=== PATIENT | female | born 1955 | race Caucasian/White ===

== ENCOUNTER 2022-05-20 17:42 | Emergency (ER) | payer OTHER ==
--- OUTSIDE RECORDS SUMMARY | 2022-05-20 17:48 | XMS REPORT | Continuity of Care Document ---
:1955 Author Organization [facility] t Address [address] [place] [address] Care Team Providers Name Role Phone TISH SAUCEDA Primary Care Physician Unavailable RAJIV GILMORE Attending Clinician Unavailable Manuel Bustos MD Attending Clinician ERIC CHAPA Attending Clinician Unavailable ERIC CHAPA Admitting Clinician Unavailable Payers Payer Name Policy Type Policy Number Effective Date Expiration Date Brice felipe [facility] DUAL [id number] 2022 COMP HMO D SNP 00:00:00 [place] [id number] 2022 00:00:00 Problems Condition Condition Condition Status Onset Resolution Last Treating Co mments Source Name Details Category Date Date Treatment Clinician Date Palpitatio Palpitatio Disease Active U nivers ns ns 6-27 ity of 00:: 00 Medical Branch Dyslipidem Dyslipidem Disease Active U nivers ia ia 6-26 ity of 00:00: [place] 00 Medical Branch Atypical Atypical Disease Active Unive rs chest pain chest pain 6-25 it y of 00:00: Medical Branch First First Disease Active Univers degree AV degree AV 6-25 ity of block block 00:00: [place] 00 Medical Branch Allergies, Adverse Reactions, Alerts Allergy Allergy Status Severity Reaction(s) Onset Inactive Treating Comm ents Source Name Type Date Date Clinician Sulfa Propensi Active Other - See Uni vers (Sulfona ty to comments 7-27 ity of mide adverse 00:00: [place] Antibiot reaction 00 Medica l ics) s Branch SULFA Drug Active Other-Cmnt Univer s (SULFONA Class 7-27 ity of MIDE 00:00: [place] ANTIBIOT 00 Medical ICS) Branch Hydrocod Propensi Active Shortness of 2021-0 Univers one ty to Breath 6-25 ity of adverse 00:00: [place] reaction Medical s Branch HYDROCOD DRUG Active SOB Univers ONE INGREDI 6-25 ity of 00:00: [place] 00 Medical Branch CODEINE DRUG Active Rash 2021-0 Univers INGREDI 4-08 ity of 00:00: [place] 00 Medical Branch Codeine Propensi Active Rash Univers ty to 4-08 ity of adverse 00:00: [place] reaction Medical s Branch Social History Social Habit Start Date Stop Date Quantity Comments Source History SDOH University o f Alcohol Std [place] Medical Drinks Branch History SDLA University o f Alcohol Binge [place] Medic al Branch History [facility] University o f Alcohol Comment [place] Med ical Branch Exposure to 2022-03-19 2022-03-29 Not sure University of SARS-CoV-2 00:00:00 13:48:00 [place] Medical (event) Branch Alcohol intake 2022-03-29 2022-03-29 Lifetime University of 00:00:00 00:00:00 non-drinker [place] Medical (finding) Branch Education 2022-02-25 2022-02-25 21 University of 00:00:00 00:00:00 [facility] [place] [facility] Tobacco use and 2021-12-09 2021-12-09 Smokeless tobacco Un iversity of exposure 00:00:00 00:00:00 non-user [place] Medical Branch History SDOH 2021-12-09 2021-12-09 1 University o f Alcohol Frequency 00:00:00 00:00:00 [place] M edical Branch History of 2016-11-01 Cigarette Smoker Universi ty of tobacco use 00:00:00 [facility] [place] [facility] Sex [birth year] Universit y of 00:00:00 00:00:00 [facility] [place] [facility] Smoking Status Start Date Stop Date Source Ex-smoker 2021-12-09 00:00:00 2021-12-09 00:00:00 Universi ty of [facility] [place] [facility] Medications Ordered Filled Start Stop Current Ordering Indication Dosage Frequency Signature Comments Components Source Medication Medication Date Date Medication? Clinician (SIG) Name Name nitroglycer Yes [id number] .4mg Place 1 Univers in 0.4 mg 7-27 tablet ity of sublingual 00:00: [place] tablet 00 tongue Medical every 5 Branch (five) minutes as needed for Chest pain. nitroglycer Yes [id number] .4mg Place 1 Univers in 0.4 mg 7-27 tablet ity of sublingual 00:00: [place] tablet 00 tongue Medical every 5 Branch (five) minutes as needed for Chest pain. ALPRAZolam Yes [id number] 2mg Take 1 U nivers 2 mg tablet 7-12 tablet by ity of 00:00: mouth in [place] 00 the Medical morning. Branch FLUoxetine Yes [id number] 10mg Take 1 U nivers 10 mg 7-12 capsule by ity of capsule 00:00: mouth in [place] the Medical morning. Branch ALPRAZolam Yes [id number] 2mg Take 1 U nivers 2 mg tablet 7-12 tablet by ity of 00:00: mouth in [place] the Medical morning. Branch FLUoxetine Yes [id number] 10mg Take 1 U nivers 10 mg 7-12 capsule by ity of capsule 00:00: mouth in [place] the Medical morning. Branch aspirin 81 2021- Yes [id number] 81mg Take 1 Univers mg chewable 6-27 07-28 tablet by it y of tablet 00:00: 04:59 mouth [place] 00 :00 daily for Medical 30 days. Branch aspirin 81 2021- Yes [id number] 81mg Take 1 Univers mg chewable 6-27 07-28 tablet by it y of tablet 00:00: 04:59 mouth [place] 00 :00 daily for Medical 30 days. Branch niacin 250 Yes [id number] 250mg Take 1 Univers mg tablet 6-26 tablet by ity o f 00:00: mouth at [place] [address] bedtime. Medical Branch niacin 250 Yes [id number] 250mg Take 1 Univers mg tablet 6-26 tablet by ity o f 00:00: mouth at [place] [address] bedtime. Medical Branch tiZANidine Yes [id number] TAKE 1 U nivers 2 mg tablet 4-08 TABLET BY ity of 00:00: MOUTH [place] 00 EVERY 8 Medical HOURS Branch NEEDED FOR SPASMS proMETHazin Yes [id number] TAKE 1 Univers e 12.5 mg 4-08 TABLET BY ity o f tablet 00:00: MOUTH [place] 00 EVERY 6 Medical HOURS Branch NEEDED tiZANidine Yes [id number] TAKE 1 U nivers 2 mg tablet 4-08 TABLET BY ity of 00:00: MOUTH [place] 00 EVERY 8 Medical HOURS Branch NEEDED FOR SPASMS proMETHazin Yes [id number] TAKE 1 Univers e 12.5 mg 4-08 TABLET BY ity o f tablet 00:00: MOUTH [place] 00 EVERY 6 Medical HOURS Branch NEEDED hydrOXYzine Yes TAKE ONE Un jodi 50 mg 2-14 CAPSULE BY ity of capsule 00:00: MOUTH [place] 00 TWICE Medical DAILY Branch NEEDED FOR ITCHING hydrOXYzine Yes TAKE ONE Un jodi 50 mg 2-14 CAPSULE BY ity of capsule 00:00: MOUTH [place] 00 TWICE Medical DAILY Branch NEEDED FOR ITCHING Vital Signs Vital Name Observation Time Observation Value Comments Source Systolic blood 2022-03-29 18:52:00 122 [facility]Hg[facility] 2022-03-29 18:52:00 71 [facility]Hg[facility] 2022-03-29 18:52:00 71 /min [facility] Body temperature 2022-03-29 18:52:[address] [facility] Body height 2022-03-29 18:52:00 165.1 cm [facility] Body weight 2022-03-29 18:52:00 63.504 kg [facility] BMI 2022-03-29 18:52:00 23.30 kg/m2 [facility] Oxygen saturation in 2022-03-29 18:52:00 98 /min [facility] Arterial blood by [facility] Pulse oximetry Branch Procedures This patient has no known procedures. Encounters Start End Encounter Admission Attending Care Care Encounter Source Date/Time Date/Time Type Type Clinicians Facility Department ID 2022-05-23 2022-05-[address] [facility] [id number] Univers 00:00:00 00:00:00 RAJIV moody [facility] 2022-03-29 2022-03-29 Office Akash [facility] [id number] Univers 13:20:00 13:40:00 Visit Manuel KEEBRIANNA [id number] heidy [facility] [id number] Ema fall PROFESSIO [id number] Mo dical NAL 059 [facility] 2022-02-25 2022-02-27 Outpatient X SAMMI [facility] [id number] Univers 00:18:00 13:00:00 ERIC moody [facility] Results This patient has no known results.
--- NOTE | 2022-05-20 18:45 | RAD REPORT ---
EXAM DESCRIPTION: [place] Single View05/20/2022 6:36 pm CLINICAL HISTORY: Chest pain COMPARISON: none FINDINGS: The lungs appear clear of acute infiltrate. The heart is normal size IMPRESSION: No acute abnormalities displayed
[2022-05-20] MEDS ORDERED: ASPIRIN 81 MG CHEWABLE TABLET ONE (18:46)
[2022-05-20 19:16] LABS: Protime INR 1.04
[2022-05-20 19:28] LABS: Absolute Lymphocytes (CBC) 1.9 K/uL (0.7-4.9); Albumin 4.3 g/dL (3.4-5.0); Bilirubin Direct 0.1 mg/dL (0-0.2); Bilirubin Total 0.4 mg/dL (0.2-1.0); Lymphocytes % 34.5 % (15.3-44.8); MCV 92.4 fL (80-100); MPV 8.1 fL (7.6-11.3); Magnesium 2.1 mg/dL (1.8-2.4); Potassium 3.5 mmol/L (3.5-5.1); Protein, Total 7.7 g/dL (6.4-8.2); RBC Red Blood Cell Count 4.33 M/uL (3.86-4.86); Troponin High Sensitivity 4.7 pg/mL (<58.9)
--- NOTE | 2022-05-20 23:05 | ER ---
Nurse's Notes [facility] Name: Brittany Ching Age: 66 yrs Sex: Female : 1955 Arrival Date: 05/20/2022 Time: 17:47 Bed 25 Private MD: Diagnosis: Chest pain, unspecified Presentation: 05/20 17:47 Chief complaint: Sudden onset left sided chest pain and SOB that started approx 30 mins hb ago. Coronavirus screen: At this time, the client does not indicate any symptoms associated with coronavirus-19. Ebola Screen: No symptoms or risks identified at this time. Risk Assessment: Do you want to hurt yourself or someone else? Patient reports no desire to harm self or others. Onset of symptoms was May 20, 2022. 17:47 Method Of Arrival: Ambulatory 17:47 Acuity: WAYNE 3 05/21 00:00 Initial Sepsis Screen: Does the patient meet any 2 criteria? No. Patient's initial kb3 sepsis screen is negative. Does the patient have a suspected source of infection? No. Patient's initial sepsis screen is negative. Historical: - Allergies: 05/20 17:48 Sulfa (Sulfonamide Antibiotics); hb 17:48 Codeine; hb - Home Meds: 17:48 Prozac Oral [Active]; tizanidine oral [Active]; Xanax Oral [Active]; hb - PMHx: 17:48 Bipolar disorder; Anxiety; hb - Immunization history:: Adult Immunizations up to date, Client reports receiving the 1st dose of the Covid vaccine, Last tetanus immunization: unknown. - Social history:: Smoking status: Patient denies any tobacco usage or history of. Screenin:00 Abuse screen: Denies threats or abuse. Denies injuries from another. Nutritional kb3 screening: No deficits noted. Tuberculosis screening: No symptoms or risk factors identified. Fall Risk None identified. Assessment: 18:00 General: Appears in no apparent distress. Behavior is calm, cooperative, Received care kb3 of pt from triage. Pt is AAO x4. Reports sudden onset of left-sided chest pain that began this afternoon after she had a verbal altercation with her roommate and was kicked out of her living situation. Pt reports "I am now homeless and I don't know what to do." PT denies N/V/sweating with CP. States the pain has subsided at this time and is preoccupied with plugging in her cell phone and getting a drink of water. No distress noted. 18:00 Pain: Denies pain. Cardiovascular: Reports chest pain, Reports the left-sided chest kb3 pain comes and goes and she is not experiencing CP at this time Heart tones present Capillary refill < 3 seconds Patient's skin is warm and dry. Pulses are 2+ in right radial artery and left radial artery. Respiratory: Breath sounds are clear bilaterally. 18:00 Pain: Pain does not radiate. Pt reports chest pain comes and goes and has resolved at kb3 this time Pain began 1 day ago. 20:45 General: Pt ambulatory to restroom without distress. kb3 22:23 General: [place] and drink provided. PT resting comfortably. kb3 23:38 General: Pt ambulatory to restroom without difficulty. kb3 Vital Signs: 17:47 BP 124 / 90; Pulse 88; Resp 16; Temp 98.2(O); Pulse Ox 100% on R/A; Weight 62.14 kg; hb Height 5 ft. 5 in. (165.10 cm); Pain 7/10; 18:00 BP 107 / 71; Pulse 75; Resp 20; Pulse Ox 98% ; kb3 19:00 BP 103 / 67; Pulse 73; Resp 18; Pulse Ox 97% ; kb3 20:00 BP 132 / 237; Pulse 73; Resp 18; Pulse Ox 98% ; kb3 21:00 BP 105 / 69; Pulse 66; Resp 18; Pulse Ox 100% ; kb3 22:00 BP 102 / 68; Pulse 66; Resp 18; Pulse Ox 100% ; kb3 23:00 BP 107 / 80; Pulse 87; Resp 20; Pulse Ox 100% ; kb3 17:47 Body Mass Index 22.80 (62.14 kg, 165.10 cm) hb ED Course: 17:47 Patient arrived in ED. hb 17:48 Triage completed. hb 17:48 Arm band placed on. hb 17:51 Darnell Seten PA is PHCP. cp 17:51 Annabelle Jeffery MD is Attending Physician. cp 17:54 Kait Martinez, PUSHPA is Primary Nurse. kb3 18:00 Patient has correct armband on for positive identification. Client placed on continuous kb3 cardiac and pulse oximetry monitoring. NIBP monitoring applied. classroom monitor on. 18:00 No provider procedures requiring assistance completed. Patient maintains SpO2 kb3 saturation greater than 95% on room air. 18:38 XRAY Chest (1 view) In Process Unspecified. EDMS 18:45 Inserted saline lock: 22 gauge in right antecubital area, using aseptic technique. kb3 Blood collected. 23:04 Hemal Urrutia MD is Referral Physician. cp 05/21 00:00 IV discontinued, intact, bleeding controlled, No redness/swelling at site. kb3 Administered Medications: 05/20 18:40 Drug: Aspirin Chewable Tablet 324 mg Route: PO; kb3 19:30 Follow up: Response: No adverse reaction kb3 Medication: 18:00 VIS not applicable for this client. kb3 Outcome: 23:04 Discharge ordered by . cp 05/21 00:00 Discharged to home ambulatory. kb3 Condition: stable Discharge instructions given to patient, Instructed on discharge instructions, follow up and referral plans. medication usage, Demonstrated understanding of instructions, follow-up care, medications. 00:02 Patient left the ED. kb3 Signatures: Dispatcher [employer] EDMS Darnell Steen PA PA cp Diane Camacho, RN RN Kait Cotto, RN RN kb3 Corrections: (The following items were deleted from the chart) 05/20 17:49 17:48 Allergies: No Known Allergies; hb hb
--- NOTE | 2022-05-20 23:05 | EDPHYS ---
Physician Documentation [facility] Name: Brittany Ching Age: 66 yrs Sex: Female : 1955 Arrival Date: 05/20/2022 Time: 17:47 Bed 25 Private MD: ED Physician Annabelle Jeffery HPI: 05/20 18:05 This 66 yrs old Female presents to ER via Ambulatory with complaints of Chest Pain. cp 18:05 The patient or guardian reports chest pain that is located primarily in the anterior cp chest wall, left. 18:05 Onset: today. The pain does not radiate. Associated signs and symptoms: The patient has cp no apparent associated signs or symptoms. 18:05 The chest pain is described as a pressure. Duration: The patient or guardian reports a cp single episode, that is now resolved. Patient reports chest pain started after argument with roommate and reports she was kicked out of her home. Historical: - Allergies: 17:48 Sulfa (Sulfonamide Antibiotics); hb 17:48 Codeine; hb - Home Meds: 17:48 Prozac Oral [Active]; tizanidine oral [Active]; Xanax Oral [Active]; hb - PMHx: 17:48 Bipolar disorder; Anxiety; hb - Immunization history:: Adult Immunizations up to date, Client reports receiving the 1st dose of the Covid vaccine, Last tetanus immunization: unknown. - Social history:: Smoking status: Patient denies any tobacco usage or history of. ROS: 18:10 Constitutional: Negative for body aches, chills, fever, poor PO intake. cp 18:10 Eyes: Negative for injury, pain, redness, and discharge. cp 18:10 Cardiovascular: Positive for chest pain, Negative for edema, palpitations. Exam: 18:10 Constitutional: The patient appears in no acute distress, alert, awake, comfortable, cp non-diaphoretic, non-toxic, well developed, well nourished. 18:10 Head/Face: Normocephalic, atraumatic. cp 18:10 Eyes: Periorbital structures: appear normal, Conjunctiva: normal, no exudate, no injection, Sclera: no appreciated abnormality, Lids and lashes: appear normal, bilaterally. 18:10 ENT: External ear(s): are unremarkable, Nose: is normal, Mouth: Lips: moist, Oral mucosa: pink and intact, moist, Posterior pharynx: Airway: no evidence of obstruction, patent. 18:10 Neck: ROM/movement: is normal, is supple, without pain, no range of motions limitations, no nuchal rigidity. 18:10 Chest/axilla: Inspection: normal, Palpation: is normal, no crepitus, no tenderness. 18:10 Cardiovascular: Rate: normal, Rhythm: regular, Edema: is not appreciated, JVD: is not appreciated. 18:10 Respiratory: the patient does not display signs of respiratory distress, Respirations: normal, no use of accessory muscles, no retractions, labored breathing, is not present, Breath sounds: are clear throughout, no decreased breath sounds, no stridor, no wheezing. 18:10 Abdomen/GI: Inspection: abdomen appears normal, Bowel sounds: active, all quadrants, Palpation: abdomen is soft and non-tender, in all quadrants. 18:10 Back: pain, is absent, ROM is normal. 18:10 Neuro: Orientation: to person, place \T\ time. Mentation: is normal, Motor: moves all fours, strength is normal, Sensation: is normal. 18:33 ECG was reviewed by the Attending Physician. cp 23:45 ECG was reviewed by the Attending Physician. cp Vital Signs: 17:47 BP 124 / 90; Pulse 88; Resp 16; Temp 98.2(O); Pulse Ox 100% on R/A; Weight 62.14 kg; hb Height 5 ft. 5 in. (165.10 cm); Pain 7/10; 18:00 BP 107 / 71; Pulse 75; Resp 20; Pulse Ox 98% ; kb3 19:00 BP 103 / 67; Pulse 73; Resp 18; Pulse Ox 97% ; kb3 20:00 BP 132 / 237; Pulse 73; Resp 18; Pulse Ox 98% ; kb3 21:00 BP 105 / 69; Pulse 66; Resp 18; Pulse Ox 100% ; kb3 22:00 BP 102 / 68; Pulse 66; Resp 18; Pulse Ox 100% ; kb3 23:00 BP 107 / 80; Pulse 87; Resp 20; Pulse Ox 100% ; kb3 17:47 Body Mass Index 22.80 (62.14 kg, 165.10 cm) hb MDM: 18:00 Patient medically screened. cp 19:00 Differential diagnosis: abnormal EKG, acute myocardial infarction, anxiety, pneumonia, cp pneumothorax, stable angina, unstable angina. 23:00 The patient was given aspirin in the Emergency Department. cp 23:00 Data reviewed: vital signs, nurses notes, lab test result(s), EKG, radiologic studies, cp plain films. Test interpretation: by ED physician or midlevel provider: ECG, plain radiologic studies. Counseling: I had a detailed discussion with the patient and/or guardian regarding: the historical points, exam findings, and any diagnostic results supporting the discharge/admit diagnosis, lab results, radiology results, to return to the emergency department if symptoms worsen or persist or if there are any questions or concerns that arise at home. ED course: VSS. Reviewed results of labs and EKGs that were normal. Will discharge to f/u outpatient. 05/20 18:04 Order name: Basic Metabolic Panel; Complete Time: 19:36 05/20 20:06 Interpretation: Reviewed. 05/20 18:04 Order name: CBC with Diff; Complete Time: 19:36 05/20 19:36 Interpretation: Reviewed. 05/20 18:04 Order name: LFT's; Complete Time: 19:36 05/20 20:06 Interpretation: Reviewed. 05/20 18:04 Order name: Magnesium; Complete Time: 19:36 05/20 18:04 Order name: NT PRO-BNP; Complete Time: 19:36 05/20 18:04 Order name: PT-INR; Complete Time: 19:36 05/20 18:04 Order name: Troponin HS; Complete Time: 19:36 05/20 20:06 Interpretation: Reviewed. 05/20 18:04 Order name: XRAY Chest (1 view); Complete Time: 19:36 05/20 18:04 Order name: EKG; Complete Time: 18:05 05/20 18:04 Order name: Cardiac monitoring; Complete Time: 18:35 05/20 18:04 Order name: EKG - Nurse/Tech; Complete Time: 18:35 05/20 18:04 Order name: IV Saline Lock; Complete Time: 18:35 05/20 21:49 Order name: Troponin High Sensitivity: repeat at 2200; Complete Time: 22:42 cp 05/20 18:04 Order name: Labs collected and sent; Complete Time: 18:55 cp 05/20 18:04 Order name: O2 Per Protocol; Complete Time: 18:35 cp 05/20 18:04 Order name: O2 Sat Monitoring; Complete Time: 18:35 cp 05/20 21:49 Order name: EKG - Nurse/Tech; Complete Time: 23:46 cp EC:33 Rate is 70 beats/min. Rhythm is regular. CA interval is normal. QRS interval is normal. cp QT interval is normal. T waves are Inverted in lead aVR. Interpreted by me. Reviewed by me. 23:45 Rate is 80 beats/min. Rhythm is regular. CA interval is normal. QRS interval is normal. cp QT interval is normal. T waves are Inverted in lead aVR. Interpreted by me. Reviewed by me. Administered Medications: 18:40 Drug: Aspirin Chewable Tablet 324 mg Route: PO; kb3 19:30 Follow up: Response: No adverse reaction kb3 Disposition Summary: 05/20/22 23:04 Discharge Ordered Location: Home cp Problem: new cp Symptoms: have improved cp Condition: Stable cp Diagnosis - Chest pain, unspecified cp Followup: cp - With: Hemal Urrutia MD - When: 2 - 3 days - Reason: Recheck today's complaints Discharge Instructions: - Discharge Summary Sheet cp - Nonspecific Chest Pain, Adult cp - Aspirin and Your Heart cp - Managing Stress, Adult cp Forms: - Medication Reconciliation Form cp - Thank You Letter cp - Antibiotic Education cp - Prescription Opioid Use cp Addendum: 05/22/2022 15:33 STAFF ATTESTATION STATEMENT: I was immediately available onsite in the emergency s d2 department for consultation in the care of this patient. I did not see or examine this patient. Annabelle Jeffery MD. Signatures: Dispatcher [employer] EDMS Darnell Steen PA PA cp Diane Camacho RN RN hb Dunlop, Stephanie, MD MD sd2 Kait Martinez, PUSHPA RN kb3 Corrections: (The following items were deleted from the chart) 05/20 17:49 17:48 Allergies: No Known Allergies; hb hb
[2022-05-20] MEDS ORDERED: NA CHLORIDE 0.9% 500 ML ONE (23:23)
--- NOTE | 2022-05-21 15:56 | EKG ---
Test Date: 2022-05-20 Test Time: 18:25:50 Hot Box Operator: CARMELO MEASUREMENT RESULTS: Intervals: Rate: 70 LA: 182 QRSD: 66 QT: 414 QTc: 447 [facility]: P: 54 LA: 182 QRS: 10 T: 49 INTERPRETIVE STATEMENTS: Normal sinus rhythm Cannot rule out Anterior infarct, age undetermined Abnormal ECG No previous ECG available for comparison Electronically Signed On 05-21-22 15:54:25 CDT by Hemal Urrutia
[2022-05-22 11:02] VITALS: TEMP 98.2
[2022-05-22 11:45] VITALS: BP 103/67; O2SAT 97
--- NOTE | 2022-05-24 06:43 | EKG ---
Test Date: 2022-05-20 Test Time: 23:39:54 Assembler Adjuster: CARMELO MEASUREMENT RESULTS: Intervals: Rate: 80 UT: 190 QRSD: 68 QT: 414 QTc: 477 [place]: P: 59 UT: 190 QRS: 10 T: 39 INTERPRETIVE STATEMENTS: Normal sinus rhythm Cannot rule out Anterior infarct, age undetermined Abnormal ECG Compared to ECG 05/20/2022 18:25:50 No significant changes Electronically Signed On 05-24-22 06:32:47 CDT by Hemal Urrutia
== END 2022-05-21 00:02 | disposition home or self-care (01) ==
LOC: ER 17:42
DX: R07.89 Other chest pain (principal); F41.9 Anxiety disorder, unspecified
CPT/HCPCS: 93005 ×2; 85025; 80048; 36415; 83735; 85610; 80076; 84484 ×2; 83880; 71045; 99285; J7040